=== PATIENT | female | born 1995 | race African-American/Black ===

== ENCOUNTER 2018-05-25 11:29 | Emergency (ER) | payer BC, MEDICAID, OTHER, SELFPAY ==
--- NOTE | 2018-05-25 12:53 | RAD ---
RIGHT KNEE FOUR VIEWS: History: 23-year-old female with right knee pain. FINDINGS/IMPRESSION: No fracture, dislocation, or other significant acute osseous abnormality. POS: [facility]
== END 2018-05-25 14:43 | disposition home or self-care (01) ==
LOC: ERS 11:29
DX: M25.561 Pain in right knee (principal); S60.511A Abrasion of right hand, initial encounter; V89.2XXA Person injured in unspecified motor-vehicle accident, traffic, initial encounter; W22.8XXA Striking against or struck by other objects, initial encounter